=== PATIENT | male | born 1945 | race Two or more races ===

== ENCOUNTER 2018-05-01 17:51 | Emergency (ER) | payer MEDICARE, OTHER ==
[~2018-05-01] VITALS: Ht 172.7 cm; Wt 84.1 kg
[~2018-05-01 17:51] MED LIST: AMLO5TAB4 PO; IBUP-1986 PO
[2018-05-01 18:54] LABS: CLARITY,URINE CLEAR (Clear); COLOR,URINE YELLOW (Yellow); GLUCOSE, URINE NEGATIVE (Neg); KETONES,URINE NEGATIVE (Neg); LEUKOCYTE ESTERASE ,URINE NEGATIVE (Neg); NITRITES, URINE NEGATIVE (Neg); OCCULT BLOOD,URINE NEGATIVE (Neg); PROTEIN,URINE NEGATIVE (Neg); UROBILINOGEN,URINE 0.2 E.U/dL (0.2-1.0)
[2018-05-01 18:59] LABS: BASOPHILS % (AUTO) 0.6 % (0-1); EOSINOPHILS # (AUTO) 0.2 X10'3 (0-0.9); EOSINOPHILS % (AUTO) 1.9 % (0-6); HEMATOCRIT 45.5 % (42.0-52.0); LYMPHOCYTES # (AUTO) 1.7 X10'3 (1.1-4.8); LYMPHOCYTES % (AUTO) 21.2 % (21-51); MEAN CORPUSCULAR HGB CONC 32.9 % (33.0-36.5); MEAN PLATELET VOLUME 8.8 FL (7.4-10.4); MONOCYTES # (AUTO) 0.6 X10'3 (0-0.9); MONOCYTES % (AUTO) 7.4 % (2-12); NEUTROPHILS # (AUTO) 5.5 X10'3 (1.8-7.7); NEUTROPHILS % (AUTO) 68.9 % (42-75); PLATELET COUNT 296 X10'3 (140-440); RED CELL DISTRIBUTION WIDTH 14.1 % (11.5-14.5)
[2018-05-01 19:00] LABS: UA COLLECTION TYPE CLN CATCH MIDSTREAM
[2018-05-01 19:13] LABS: ALANINE AMINOTRANSFERASE 20 U/L (12-78); ALBUMIN 3.6 G/DL (3.4-5.0); ALKALINE PHOSPHATASE 56 IU/L (46-116); ANION GAP 10 (8-16); ASPARTATE AMINO TRANSFERASE 15 U/L (10-37); BILIRUBIN,TOTAL 0.3 MG/DL (0.1-1.0); BLOOD UREA NITROGEN 18 MG/DL (7-18); BUN/CREATININE RATIO 18.8 (5.4-32.0); CALCIUM 8.9 MG/DL (8.5-10.1); CHLORIDE 105 MMOL/L (99-107); CREATININE 0.96 MG/DL (0.60-1.10); GLUCOSE 89 MG/DL (70-104); POTASSIUM 4.4 MMOL/L (3.5-5.1); SODIUM 142 MMOL/L (135-145); TOTAL CARBON DIOXIDE 27.3 MMOL/L (24-32); TOTAL PROTEIN 7.1 G/DL (6.4-8.2); eGFR 77 ML/MIN
[2018-05-01 19:55] VITALS: BP 152/96
== END 2018-05-01 19:57 | disposition home or self-care (01) ==
LOC: ER 17:52
DX: R42 Dizziness and giddiness (principal); R06.02 Shortness of breath; I10 Essential (primary) hypertension; Z79.899 Other long term (current) drug therapy
CPT/HCPCS: 36415; 80053; 81003; 85025; 99283

== ENCOUNTER 2019-06-15 17:05 | Inpatient (IN) | payer MEDICARE, OTHER ==
--- NOTE | 2019-06-06 18:30 | NUR ---
Patient in room ICU 2041. I have received report from Karuna CHAPA and had the opportunity to ask questions and assume patient care. Addendum: 06/17/19 at 0641 by Chloe Abernathy RN Received report 06/16/19, 3639
[~2019-06-15] VITALS: Ht 172.7 cm; Wt 71.5 kg
[2019-06-15] MEDS ORDERED: normal saline 1000ml 1,000 ML IV ONE (17:42)
[2019-06-15] MEDS ORDERED: normal saline 1000ML IV soln IVB ONE ×2 (17:45→19:00)
[2019-06-15 17:49] LABS: BASOPHILS % (AUTO) 0.4 % (0-1); EOSINOPHILS # (AUTO) 0.2 X10'3 (0-0.9); EOSINOPHILS % (AUTO) 2.8 % (0-6); HEMATOCRIT 26.4 % (42.0-52.0); HEMOGLOBIN 8.7 g/dl (14.0-17.9); LYMPHOCYTES # (AUTO) 1.1 X10'3 (1.1-4.8); MEAN CORPUSCULAR HEMOGLOBIN 31.8 PG (27.0-31.0); MEAN CORPUSCULAR HGB CONC 33.1 g/dL (33.0-36.5); MEAN PLATELET VOLUME 11.1 FL (7.4-10.4); MONOCYTES # (AUTO) 0.4 X10'3 (0-0.9); MONOCYTES % (AUTO) 5.5 % (2-12); NEUTROPHILS # (AUTO) 5.8 X10'3 (1.8-7.7); NEUTROPHILS % (AUTO) 76.3 % (42-75); PLATELET COUNT 178 X10'3 (140-440); RED BLOOD COUNT 2.75 X10'6 (4.70-6.10); RED CELL DISTRIBUTION WIDTH 14.1 % (11.5-14.5); WHITE BLOOD COUNT 7.6 X10'3 (4.5-11.0)
[2019-06-15] MEDS ORDERED: hydrALAZINE 25 MG tablet PO SCH (17:50)
[2019-06-15] MEDS ORDERED: hydrALAZINE 20mg/ml inj. IV ONE ×2 (17:50→18:30)
[2019-06-15] MEDS ORDERED: nitroGLYCERIN 0.4mg/hour patch TD ONE (17:50)
[2019-06-15 18:06] LABS: ALANINE AMINOTRANSFERASE 19 U/L (12-78); ALBUMIN 4.8 G/DL (3.4-5.0); ALBUMIN/GLOBULIN RATIO 1.3 (1.1-1.5); ALKALINE PHOSPHATASE 78 IU/L (46-116); ANION GAP 14 (8-16); ASPARTATE AMINO TRANSFERASE 10 U/L (10-37); BILIRUBIN,TOTAL 0.3 MG/DL (0.1-1.0); BLOOD UREA NITROGEN 91 MG/DL (7-18); BUN/CREATININE RATIO 15.4 (5.4-32.0); CALCIUM 8.7 MG/DL (8.5-10.1); CHLORIDE 106 MMOL/L (99-107); GLUCOSE 100 MG/DL (70-104); LIPASE 550 U/L (73-393); SODIUM 140 MMOL/L (135-145); TOTAL CARBON DIOXIDE 19.8 MMOL/L (24-32); TOTAL PROTEIN 8.6 G/DL (6.4-8.2); TROPONIN I < 0.04 NG/ML (0.0-0.05); eGFR 9 ML/MIN
[2019-06-15 18:07] LABS: CLARITY,URINE CLEAR (Clear); COLOR,URINE YELLOW (Yellow); GLUCOSE, URINE NEGATIVE (Neg); KETONES,URINE NEGATIVE (Neg); LEUKOCYTE ESTERASE ,URINE NEGATIVE (Neg); NITRITES, URINE NEGATIVE (Neg); OCCULT BLOOD,URINE NEGATIVE (Neg); PH,URINE 6.5 (4.8-8.0); PROTEIN,URINE NEGATIVE (Neg); UA COLLECTION TYPE CLN CATCH MIDSTREAM; UROBILINOGEN,URINE 0.2 E.U/dL (0.2-1.0)
[2019-06-15 18:10] LABS: POTASSIUM 6.9 MMOL/L (3.5-5.1)
[2019-06-15 18:36] LABS: ETHANOL < 0.010 GM/DL (0.0-0.010); MAGNESIUM 2.9 MG/DL (1.5-2.4)
[2019-06-15 18:41] LABS: LARGE PLATELETS FEW; PLATELET ESTIMATE NORMAL
[2019-06-15 18:43] LABS: PARTIAL THROMBOPLASTIN TIME 24 SECONDS (22-32)
[2019-06-15] MEDS ORDERED: calcium gluconate inj. 2 GM in normal saline 100ml IV soln 100 ML IV ONE (18:45)
[2019-06-15] MEDS ORDERED: insulin regular, human 10 units/0.1 ml syringe IV ONE (18:45)
[2019-06-15] MEDS ORDERED: albuterol 2.5 MG/3 ML nebule NEB ONE (18:45)
[2019-06-15] MEDS ORDERED: dextrose 50%-water 50ml dispensing syringe IV ONE (18:45)
[2019-06-15] MEDS ORDERED: LISI40TA4 PO (18:55)
[2019-06-15] MEDS ORDERED: esmolol/sodium cl bag 250 ML IV PRN (18:59)
[2019-06-15] MEDS ORDERED: ondansetron/PF 4mg/2ml inj IV PRN (20:40)
[2019-06-15] MEDS ORDERED: acetaminophen 650mg rectal suppository RC PRN (20:40)
[2019-06-15] MEDS ORDERED: acetaminophen 325mg tablet PO PRN ×2 (20:40)
[2019-06-15] MEDS ORDERED: albuterol 2.5 MG/3 ML nebule CONTNEB ONE (20:50)
[2019-06-15] MEDS ORDERED: sodium polystyrene sulfonate 15gm/60ml oral suspension PO ONE (20:50)
[2019-06-15 21:37] LABS: BASOPHILS % (AUTO) 0.4 % (0-1); EOSINOPHILS # (AUTO) 0.1 X10'3 (0-0.9); EOSINOPHILS % (AUTO) 0.7 % (0-6); HEMATOCRIT 22.2 % (42.0-52.0); HEMOGLOBIN 7.5 g/dl (14.0-17.9); LYMPHOCYTES # (AUTO) 1.4 X10'3 (1.1-4.8); LYMPHOCYTES % (AUTO) 16.2 % (21-51); MEAN CORPUSCULAR HEMOGLOBIN 32.5 PG (27.0-31.0); MEAN CORPUSCULAR HGB CONC 33.9 g/dL (33.0-36.5); MEAN CORPUSCULAR VOLUME 95.9 FL (78-98); MEAN PLATELET VOLUME 10.9 FL (7.4-10.4); MONOCYTES # (AUTO) 0.7 X10'3 (0-0.9); MONOCYTES % (AUTO) 8.3 % (2-12); NEUTROPHILS # (AUTO) 6.2 X10'3 (1.8-7.7); NEUTROPHILS % (AUTO) 74.4 % (42-75); PLATELET COUNT 153 X10'3 (140-440); RED BLOOD COUNT 2.32 X10'6 (4.70-6.10); RED CELL DISTRIBUTION WIDTH 14.1 % (11.5-14.5); WHITE BLOOD COUNT 8.3 X10'3 (4.5-11.0)
[2019-06-15 22:00] LABS: HEMOGLOBIN A1C 5.2 % (4.5-6.2)
[2019-06-15 22:03] LABS: ALANINE AMINOTRANSFERASE 17 U/L (12-78); ALBUMIN 4.1 G/DL (3.4-5.0); ALBUMIN/GLOBULIN RATIO 1.3 (1.1-1.5); ALKALINE PHOSPHATASE 67 IU/L (46-116); ANION GAP 16 (8-16); ASPARTATE AMINO TRANSFERASE 11 U/L (10-37); BILIRUBIN,TOTAL 0.3 MG/DL (0.1-1.0); BLOOD UREA NITROGEN 85 MG/DL (7-18); BUN/CREATININE RATIO 14.9 (5.4-32.0); CALCIUM 8.5 MG/DL (8.5-10.1); CHLORIDE 109 MMOL/L (99-107); CREATININE 5.72 MG/DL (0.60-1.10); GLUCOSE 67 MG/DL (70-104); MAGNESIUM 2.5 MG/DL (1.5-2.4); PHOSPHORUS 5.2 MG/DL (2.3-4.5); POTASSIUM 4.9 MMOL/L (3.5-5.1); SODIUM 143 MMOL/L (135-145); TOTAL CARBON DIOXIDE 17.7 MMOL/L (24-32); TOTAL PROTEIN 7.3 G/DL (6.4-8.2); eGFR 10 ML/MIN
[2019-06-15 22:07] LABS: LARGE PLATELETS FEW; PLATELET ESTIMATE NORMAL
[2019-06-15] MEDS: sodium bicarbonate (8.4%) inj. 50 MEQ in sodium chloride 0.45% 1,000 ML IV SCH (22:08)
[2019-06-15 23:00] LABS: SODIUM,URINE RANDOM 66 MEQ/L; TOTAL PROTEIN,URINE RANDOM 17.1 MG/DL; URINE AMPHETAMINE SCREEN NEGATIVE (Neg); URINE BARBITUATE SCREEN NEGATIVE (Neg); URINE BENZODIAZEPINES SCREEN NEGATIVE (Neg); URINE CANNABINOID SCREEN NEGATIVE (Neg); URINE COCAINE SCREEN NEGATIVE (Neg); URINE METHADONE SCREEN NEGATIVE (Neg); URINE OPIATE SCREEN NEGATIVE (Neg); URINE PHENCYCLIDINE SCREEN NEGATIVE (Neg)
[2019-06-15 23:30] VITALS: BP 156/82
--- NOTE | 2019-06-15 23:49 | NUR ---
233..Patient in room ICU 2041. I have received report from LITIGATION SECRETARY and had the opportunity to ask questions and assume patient care.
[2019-06-15] MEDS ORDERED: HYDROcodone/acetaminophen 10/325mg tab PO PRN (23:50)
--- NOTE | 2019-06-15 23:50 | NUR ---
2345..Complains of pain at rothman cath insertion site, critical care PAPER MACHINE TENDER notified, orders received. Pt speaks broken lithuanian and wants to wait until tomorrow to answer admission questions when he has an lithuanian speaking family member present. Skin intact.
[2019-06-15] MEDS: esmolol/sodium cl bag 250 ML IV SCH (23:58)
[2019-06-16] VITALS (23 sets, daily range): BP systolic 124–179; BP diastolic 53–90
[2019-06-16] MEDS: HYDROcodone/acetaminophen 5mg/325mg tablet PO PRN ×2 (00:10→21:27)
[2019-06-16 00:11] LABS: OCCULT BLOOD STOOL NEGATIVE (Neg)
[2019-06-16 01:04] LABS: UA EOSINOPHILS NO EOS /HPF
--- NOTE | 2019-06-16 01:12 | NUR ---
0000..Assessment as noted, medicated for complaints of pain as per orders.
--- NOTE | 2019-06-16 01:13 | NUR ---
0100..States feeling better, pain 0\10. No other changes noted.
--- NOTE | 2019-06-16 05:16 | NUR ---
0400..Resting quietly, eyes closed resp easy and nonlabored. No changes noted.
--- NOTE | 2019-06-16 06:18 | NUR ---
0615..Problems reprioritized. Patient report given, questions answered & plan of care reviewed with Jose M CHAPA.
[2019-06-16 06:20] LABS: BASOPHILS # (AUTO) 0.1 X10'3 (0-0.2); BASOPHILS % (AUTO) 1.9 % (0-1); EOSINOPHILS % (AUTO) 0.5 % (0-6); HEMATOCRIT 22.5 % (42.0-52.0); HEMOGLOBIN 7.5 g/dl (14.0-17.9); MEAN CORPUSCULAR HEMOGLOBIN 31.8 PG (27.0-31.0); MEAN CORPUSCULAR HGB CONC 33.3 g/dL (33.0-36.5); MEAN CORPUSCULAR VOLUME 95.5 FL (78-98); MEAN PLATELET VOLUME 11.2 FL (7.4-10.4); MONOCYTES # (AUTO) 0.4 X10'3 (0-0.9); MONOCYTES % (AUTO) 5.5 % (2-12); NEUTROPHILS # (AUTO) 5.8 X10'3 (1.8-7.7); NEUTROPHILS % (AUTO) 79.1 % (42-75); PLATELET COUNT 142 X10'3 (140-440); RED BLOOD COUNT 2.35 X10'6 (4.70-6.10); RED CELL DISTRIBUTION WIDTH 13.9 % (11.5-14.5); WHITE BLOOD COUNT 7.4 X10'3 (4.5-11.0)
[2019-06-16] MEDS: sodium bicarbonate (8.4%) inj. 50 MEQ in sodium chloride 0.45% 1,000 ML IV SCH (06:58)
[2019-06-16 07:07] LABS: ALANINE AMINOTRANSFERASE 21 U/L (12-78); ALBUMIN 3.7 G/DL (3.4-5.0); ALBUMIN/GLOBULIN RATIO 1.2 (1.1-1.5); ALKALINE PHOSPHATASE 65 IU/L (46-116); ANION GAP 15 (8-16); ASPARTATE AMINO TRANSFERASE 15 U/L (10-37); BILIRUBIN,TOTAL 0.3 MG/DL (0.1-1.0); BLOOD UREA NITROGEN 78 MG/DL (7-18); BUN/CREATININE RATIO 14.2 (5.4-32.0); CALCIUM 8.3 MG/DL (8.5-10.1); CHLORIDE 110 MMOL/L (99-107); CREATININE 5.49 MG/DL (0.60-1.10); GLUCOSE 86 MG/DL (70-104); MAGNESIUM 2.3 MG/DL (1.5-2.4); POTASSIUM 5.2 MMOL/L (3.5-5.1); SODIUM 145 MMOL/L (135-145); TOTAL CARBON DIOXIDE 19.9 MMOL/L (24-32); TOTAL PROTEIN 6.7 G/DL (6.4-8.2); eGFR 10 ML/MIN
[2019-06-16] MEDS ORDERED: AMLO5TAB16 PO (07:56)
[2019-06-16] MEDS: docusate sod 100mg capsule PO SCH ×2 (08:15→20:33)
[2019-06-16] MEDS: famotidine 10mg tablet PO SCH ×2 (08:15→20:34)
[2019-06-16] MEDS: heparin, porcine 5000 units/ml vial SQ SCH ×2 (08:22→20:34)
[2019-06-16] MEDS: esmolol/sodium cl bag 250 ML IV SCH (08:58)
[2019-06-16] MEDS: lisinopril 20mg tablet PO SCH (11:00)
--- NOTE | 2019-06-16 12:45 | NUR ---
Urine Lab: sent
--- NOTE | 2019-06-16 14:52 | NUR ---
Urine with pink tissue in urinary catheter tubing.
[2019-06-16 15:08] LABS: % IRON SATURATION 33 % (11-46); IRON 69 UG/DL (53-167); TOTAL IRON BINDING CAPACITY 212 UG/DL (259-388)
[2019-06-16 15:14] LABS: FERRITIN 339 NG/ML (26-388)
--- NOTE | 2019-06-16 18:30 | NUR ---
Patient in room ICU 2041. I have received report from Karuna CHAPA and had the opportunity to ask questions and assume patient care.
--- NOTE | 2019-06-16 18:42 | NUR ---
Problems reprioritized. Patient report given, questions answered & plan of care reviewed with Chloe CHAPA .
[2019-06-16] MEDS: tamsulosin 0.4mg capsule PO SCH (20:34)
[2019-06-16] MEDS: doxazosin mesylate 2mg tablet PO SCH (20:34)
[2019-06-17] VITALS (18 sets, daily range): BP systolic 86–122; BP diastolic 50–69
[2019-06-17 05:27] LABS: BASOPHILS % (AUTO) 0.3 % (0-1); EOSINOPHILS % (AUTO) 0.3 % (0-6); HEMATOCRIT 25.1 % (42.0-52.0); HEMOGLOBIN 8.6 g/dl (14.0-17.9); MEAN CORPUSCULAR HEMOGLOBIN 32.5 PG (27.0-31.0); MEAN CORPUSCULAR HGB CONC 34.1 g/dL (33.0-36.5); MEAN CORPUSCULAR VOLUME 95.3 FL (78-98); MEAN PLATELET VOLUME 11.4 FL (7.4-10.4); MONOCYTES # (AUTO) 0.2 X10'3 (0-0.9); MONOCYTES % (AUTO) 3.4 % (2-12); NEUTROPHILS # (AUTO) 5.8 X10'3 (1.8-7.7); PLATELET COUNT 151 X10'3 (140-440); RED BLOOD COUNT 2.63 X10'6 (4.70-6.10); RED CELL DISTRIBUTION WIDTH 13.7 % (11.5-14.5); WHITE BLOOD COUNT 7.1 X10'3 (4.5-11.0)
[2019-06-17 06:31] LABS: ALANINE AMINOTRANSFERASE 19 U/L (12-78); ALBUMIN 3.6 G/DL (3.4-5.0); ALBUMIN/GLOBULIN RATIO 1.2 (1.1-1.5); ALKALINE PHOSPHATASE 66 IU/L (46-116); ANION GAP 14 (8-16); ASPARTATE AMINO TRANSFERASE 12 U/L (10-37); BILIRUBIN,TOTAL 0.4 MG/DL (0.1-1.0); BLOOD UREA NITROGEN 78 MG/DL (7-18); BUN/CREATININE RATIO 14.8 (5.4-32.0); CALCIUM 8.4 MG/DL (8.5-10.1); CHLORIDE 107 MMOL/L (99-107); CREATININE 5.26 MG/DL (0.60-1.10); GLUCOSE 128 MG/DL (70-104); MAGNESIUM 2.2 MG/DL (1.5-2.4); PHOSPHORUS 6.9 MG/DL (2.3-4.5); SODIUM 141 MMOL/L (135-145); TOTAL CARBON DIOXIDE 19.7 MMOL/L (24-32); TOTAL PROTEIN 6.7 G/DL (6.4-8.2); eGFR 11 ML/MIN
--- NOTE | 2019-06-17 06:42 | NUR ---
Problems reprioritized. Patient report given, questions answered & plan of care reviewed with Oncoming Shift RN.
[2019-06-17] MEDS ORDERED: non-formulary drug (Lisinopril* 40 MG) PO SCH (08:00)
[2019-06-17] MEDS: famotidine 10mg tablet PO SCH ×2 (08:24→21:47)
[2019-06-17] MEDS: amLODIPine 5mg tablet PO SCH (08:24)
[2019-06-17] MEDS: docusate sod 100mg capsule PO SCH ×2 (08:24→21:47)
[2019-06-17] MEDS: lisinopril 20mg tablet PO SCH (08:25)
[2019-06-17] MEDS: heparin, porcine 5000 units/ml vial SQ SCH ×2 (08:29→21:47)
--- NOTE | 2019-06-17 10:38 | NUR ---
Malnutrition consult: Pt admit w/ hypertensive emergency, hyperkalemia, and BPH. S/p rothman placement w/ K WNL today. Pt PO 100% renal diet meeting needs, has normal strength, no edema/wounds, and no significant wt loss hx w/ BMI 25. At this time pt does not meet minimum malnutrition criteria. Will continue to monitor. Addendum: 06/17/19 at [address] Amended: Links added.
--- NOTE | 2019-06-17 18:28 | NUR ---
Problems reprioritized. Patient report given, questions answered & plan of care reviewed with Nba.
--- NOTE | 2019-06-17 18:54 | NUR ---
Patient in room PCU 3012. I have received report from Yusra CHAPA and had the opportunity to ask questions and assume patient care.
[2019-06-17] MEDS ORDERED: lactulose 20gm/30ml cup PO PRN (20:40)
[2019-06-17] MEDS: doxazosin mesylate 2mg tablet PO SCH (21:46)
[2019-06-17] MEDS: tamsulosin 0.4mg capsule PO SCH (21:46)
[2019-06-18 02:30] VITALS: BP 105/56
[2019-06-18 05:57] LABS: PLATELET COUNT 147 X10'3 (140-440)
[2019-06-18 05:59] LABS: BASOPHILS % (AUTO) 0.4 % (0-1); EOSINOPHILS # (AUTO) 0.4 X10'3 (0-0.9); EOSINOPHILS % (AUTO) 7.1 % (0-6); HEMATOCRIT 24.9 % (42.0-52.0); HEMOGLOBIN 8.3 g/dl (14.0-17.9); LYMPHOCYTES # (AUTO) 1.4 X10'3 (1.1-4.8); LYMPHOCYTES % (AUTO) 26.6 % (21-51); MEAN CORPUSCULAR HEMOGLOBIN 31.9 PG (27.0-31.0); MEAN CORPUSCULAR HGB CONC 33.5 g/dL (33.0-36.5); MONOCYTES # (AUTO) 0.4 X10'3 (0-0.9); MONOCYTES % (AUTO) 7.9 % (2-12); RED BLOOD COUNT 2.62 X10'6 (4.70-6.10); RED CELL DISTRIBUTION WIDTH 13.5 % (11.5-14.5); WHITE BLOOD COUNT 5.2 X10'3 (4.5-11.0)
[2019-06-18 06:00] VITALS: BP 113/59
--- NOTE | 2019-06-18 06:08 | NUR ---
Problems reprioritized. Patient report given, questions answered & plan of care reviewed with Susi CHAPA.
[2019-06-18 06:18] LABS: ALANINE AMINOTRANSFERASE 26 U/L (12-78); ALBUMIN 3.4 G/DL (3.4-5.0); ALBUMIN/GLOBULIN RATIO 1.1 (1.1-1.5); ALKALINE PHOSPHATASE 61 IU/L (46-116); ANION GAP 15 (8-16); ASPARTATE AMINO TRANSFERASE 8 U/L (10-37); BILIRUBIN,TOTAL 0.3 MG/DL (0.1-1.0); BLOOD UREA NITROGEN 83 MG/DL (7-18); BUN/CREATININE RATIO 15.7 (5.4-32.0); CALCIUM 7.9 MG/DL (8.5-10.1); CHLORIDE 106 MMOL/L (99-107); GLUCOSE 92 MG/DL (70-104); MAGNESIUM 2.1 MG/DL (1.5-2.4); PHOSPHORUS 6.6 MG/DL (2.3-4.5); POTASSIUM 4.6 MMOL/L (3.5-5.1); SODIUM 141 MMOL/L (135-145); TOTAL CARBON DIOXIDE 20.4 MMOL/L (24-32); TOTAL PROTEIN 6.5 G/DL (6.4-8.2); eGFR 11 ML/MIN
--- NOTE | 2019-06-18 06:32 | NUR ---
Patient in room PCU 3012. I have received report from Giovana CHAPA and had the opportunity to ask questions and assume patient care.
[2019-06-18 06:47] LABS: LARGE PLATELETS FEW; PLATELET ESTIMATE NORMAL
[2019-06-18] MEDS: docusate sod 100mg capsule PO SCH ×2 (09:59→21:03)
[2019-06-18] MEDS: heparin, porcine 5000 units/ml vial SQ SCH ×2 (10:00→21:03)
[2019-06-18] MEDS: amLODIPine 5mg tablet PO SCH (10:00)
[2019-06-18] MEDS: famotidine 10mg tablet PO SCH ×2 (10:00→21:03)
[2019-06-18] MEDS: lisinopril 20mg tablet PO SCH (10:01)
[2019-06-18 11:00] VITALS: BP 105/57
[2019-06-18 15:00] VITALS: BP 109/61
--- NOTE | 2019-06-18 18:19 | NUR ---
Problems reprioritized. Patient report given, questions answered & plan of care reviewed with Giovana CHAPA. All patient needs met at this time.
[2019-06-18 18:30] VITALS: BP 143/72
--- NOTE | 2019-06-18 18:34 | NUR ---
Patient in room PCU 3022. I have received report from Susi CHAPA and had the opportunity to ask questions and assume patient care.
[2019-06-18] MEDS: doxazosin mesylate 2mg tablet PO SCH (21:03)
[2019-06-18] MEDS: tamsulosin 0.4mg capsule PO SCH (21:03)
[2019-06-18 22:30] VITALS: BP 96/59
[2019-06-19 00:19] LABS: CLARITY,URINE CLOUDY (Clear); COLOR,URINE RED (Yellow); GLUCOSE, URINE NEGATIVE (Neg); KETONES,URINE NEGATIVE (Neg); LEUKOCYTE ESTERASE ,URINE TRACE (Neg); NITRITES, URINE POSITIVE (Neg); OCCULT BLOOD,URINE LARGE (Neg); PROTEIN,URINE >=300 mg/dl (Neg); UROBILINOGEN,URINE 0.2 E.U/dL (0.2-1.0)
[2019-06-19 00:25] LABS: UA COLLECTION TYPE FOLEY CATH
[2019-06-19 00:27] LABS: RBC,URINE TNTC /HPF (0-2)
[2019-06-19 00:28] LABS: BACTERIA,URINE 1+ /HPF (Neg); MUCUS STRANDS MODERATE /LPF (Neg); SQUAMOUS EPITHELIAL CELL,UR FEW /LPF (FEW); TRANSITIONAL EPI CELLS,URINE FEW /HPF
[2019-06-19 00:29] LABS: RENAL CELLS, URINE FEW /HPF; WBC CLUMPS,URINE FEW /HPF (NEGATIVE)
[2019-06-19 00:58] LABS: UA EOSINOPHILS MOD EOS /HPF
[2019-06-19 02:30] VITALS: BP 110/64
[2019-06-19 05:23] LABS: BASOPHILS % (AUTO) 0.6 % (0-1); EOSINOPHILS # (AUTO) 0.5 X10'3 (0-0.9); EOSINOPHILS % (AUTO) 9.8 % (0-6); HEMATOCRIT 24.3 % (42.0-52.0); HEMOGLOBIN 8.3 g/dl (14.0-17.9); LYMPHOCYTES # (AUTO) 1.3 X10'3 (1.1-4.8); LYMPHOCYTES % (AUTO) 23.7 % (21-51); MEAN CORPUSCULAR HEMOGLOBIN 32.2 PG (27.0-31.0); MEAN CORPUSCULAR VOLUME 94.7 FL (78-98); MEAN PLATELET VOLUME 11.4 FL (7.4-10.4); MONOCYTES # (AUTO) 0.4 X10'3 (0-0.9); NEUTROPHILS # (AUTO) 3.2 X10'3 (1.8-7.7); NEUTROPHILS % (AUTO) 58.9 % (42-75); PLATELET COUNT 151 X10'3 (140-440); RED BLOOD COUNT 2.56 X10'6 (4.70-6.10); RED CELL DISTRIBUTION WIDTH 13.8 % (11.5-14.5); WHITE BLOOD COUNT 5.4 X10'3 (4.5-11.0)
[2019-06-19 05:41] LABS: ALANINE AMINOTRANSFERASE 28 U/L (12-78); ALBUMIN 3.4 G/DL (3.4-5.0); ALBUMIN/GLOBULIN RATIO 1.1 (1.1-1.5); ALKALINE PHOSPHATASE 61 IU/L (46-116); ANION GAP 14 (8-16); ASPARTATE AMINO TRANSFERASE 11 U/L (10-37); BILIRUBIN,TOTAL 0.2 MG/DL (0.1-1.0); BLOOD UREA NITROGEN 85 MG/DL (7-18); BUN/CREATININE RATIO 17.1 (5.4-32.0); CALCIUM 8.3 MG/DL (8.5-10.1); CHLORIDE 104 MMOL/L (99-107); CREATININE 4.96 MG/DL (0.60-1.10); GLUCOSE 98 MG/DL (70-104); MAGNESIUM 2.1 MG/DL (1.5-2.4); PHOSPHORUS 6.8 MG/DL (2.3-4.5); POTASSIUM 4.3 MMOL/L (3.5-5.1); SODIUM 138 MMOL/L (135-145); TOTAL CARBON DIOXIDE 20.4 MMOL/L (24-32); TOTAL PROTEIN 6.6 G/DL (6.4-8.2); eGFR 12 ML/MIN
[2019-06-19 06:00] VITALS: BP 94/54
[2019-06-19 06:22] LABS: PLATELET ESTIMATE NORMAL
[2019-06-19 06:23] LABS: LARGE PLATELETS FEW
--- NOTE | 2019-06-19 06:30 | NUR ---
Patient in room PCU 3012. I have received report from EDUARD WELLS and had the opportunity to ask questions and assume patient care.
--- NOTE | 2019-06-19 06:34 | NUR ---
Problems reprioritized. Patient report given, questions answered & plan of care reviewed with Ronn RN.
[2019-06-19] MEDS: lisinopril 20mg tablet PO SCH (08:00)
[2019-06-19] MEDS: amLODIPine 5mg tablet PO SCH (08:00)
[2019-06-19] MEDS: famotidine 10mg tablet PO SCH (08:41)
[2019-06-19] MEDS: docusate sod 100mg capsule PO SCH (08:41)
[2019-06-19] MEDS: heparin, porcine 5000 units/ml vial SQ SCH (08:41)
[2019-06-19 08:47] VITALS: BP 90/49
[2019-06-19 11:00] VITALS: BP 85/54
[2019-06-19 14:09] LABS: A/G RATIO 1.3 (0.7-1.7); ALBUMIN 3.4 g/dL (2.9-4.4); BETA GLOBULIN 0.9 g/dL (0.7-1.3); GAMMA GLOBULIN 0.8 g/dL (0.4-1.8); GLOBULIN, TOTAL 2.7 g/dL (2.2-3.9); M-SPIKE Not Observed g/dL (Not Observed); PROTEIN, TOTAL, SERUM 6.1 g/dL (6.0-8.5)
[2019-06-19] MEDS ORDERED: tamsulosin capsule PO (14:13)
[2019-06-19] MEDS ORDERED: DOXA2TAB13 PO (14:13)
--- NOTE | 2019-06-19 14:15 | NUR ---
ASKED DR. BOLES WHAT THE DIET ORDERS ARE FOR DISCHARGE, RE: DIETARY CONSULT? STATES "I WILL LET HIM KNOW WHAT DIET I WANT".
[2019-06-19 15:00] VITALS: BP 113/55
--- NOTE | 2019-06-21 12:49 | NUR ---
Case Management DC follow up: spoke to pt. Reports that he is feeling good, but sometimes gets a little dizzy when stands up, but it resolves. pt states he is drinking fluids. Educated pt on orthostatic HTN prevention, from supine/sit/stand, take his time and have something/walker/furniture available to steady himself. Denies issues w/FC and has made follow up appt w/Dr Dixon and follow up appts for Dr Sosa in a month. Taking medications as ordered, verbalizes understanding of medications and why prescribed. Denies SOB, cp, emergent gen pain, N/V. Remains afebrile. All needs met, questions answered at DC. No further questions at this time.
[2019-06-22 08:09] LABS: ALPHA-1-GLOBULIN,UR 4.1 % (.); ALPHA-2-GLOBULIN,UR 15.1 % (.); GAMMA GLOBULIN,UR 13.8 % (.); PROTEIN,TOTAL,URINE 273.7 mg/dL (Not Estab.)
== END 2019-06-19 16:50 | disposition home or self-care (01) | DRG 683 ==
LOC: ER 17:06 → ED HOLD 21:15 → ICU 2S 23:19 → PCU 3S 06-17 13:40
PROVIDERS: ADMIT Internal Medicine Critical Care Medicine; ATTEND Internal Medicine Critical Care Medicine
DX: N17.9 Acute kidney failure, unspecified (principal); N13.8 Other obstructive and reflux uropathy; I16.1 Hypertensive emergency; N40.1 Benign prostatic hyperplasia with lower urinary tract symptoms; N13.39 Other hydronephrosis; N25.89 Other disorders resulting from impaired renal tubular function; E87.5 Hyperkalemia; D64.9 Anemia, unspecified; I10 Essential (primary) hypertension; N31.9 Neuromuscular dysfunction of bladder, unspecified; Z79.899 Other long term (current) drug therapy
CPT/HCPCS: 36415; 74176; 80053; 80305; 80320; 81001; 81003; 82272; 82570; 82728; 82948; 83036; 83540; 83550; 83605; 83690; 83735; 84100; 84145; 84153; 84155; 84156; 84165; 84166; 84300; 84443; 84484; 85025; 85610; 85730; 86885; 86900; 86901; 86920; 87040; 87081; 87207; 93005; 93306; 93975; 94640; 94760; G0378; J0360; J0610; J1644; J1815